=== PATIENT | female | born 1950 | race Caucasian/White ===

== ENCOUNTER 2022-10-14 13:37 | Emergency (ER) | payer MEDICARE | END 2022-10-14 15:05 | disposition home or self-care (01) | LOC: JD.ED 13:37 | DX: S52.571A Other intraarticular fracture of lower end of right radius, initial encounter for closed fracture (principal); Z85.850 Personal history of malignant neoplasm of thyroid; Z79.899 Other long term (current) drug therapy; Z88.5 Allergy status to narcotic agent; W17.89XA Other fall from one level to another, initial encounter | CPT/HCPCS: 73110-26-RT; 73110-RT; 99282; 99283 ==